=== PATIENT | female | born 1995 | race Asian ===

== ENCOUNTER 2022-12-28 08:45 | Day surgery (SDC) | payer OTHER ==
[2022-12-26 16:10] VITALS: BMI 22.8
[2022-12-28] MEDS ORDERED: Fentanyl 250 MCG/5 ML VIAL ONE (09:32)
[2022-12-28] MEDS ORDERED: Lidocaine 1% PF 5 ML VIAL ONE (10:10)
[2022-12-28] MEDS ORDERED: Ondansetron PF 4 MG/2 ML Vial ONE (10:10)
[2022-12-28] MEDS ORDERED: PROPOFOL 200 MG/20 ML VIAL ONE (10:10)
[2022-12-28 10:48] LABS: BHCG - Serum Negative (NEGATIVE); Pregs Control Background? CLEAR/WHITE (CLR/WHITE); Pregs Control Bar Appear? YES (CONTROL BAR)
[2022-12-28] MEDS ORDERED: fentaNYL 50 mcg/mL 1 mL Vial ONE ×3 (10:58→12:13)
[2022-12-28] MEDS ORDERED: HYDROcodone/Acetaminophen 5/325 mg Tablet ONE ×2 (12:58→14:26)
== END 2022-12-28 14:45 | disposition home or self-care (01) ==
LOC: SDC 08:45
PROVIDERS: ATTEND Otolaryngology Plastic Surgery within the Head & Neck
PROC: 0CBQ0ZZ Excision of Adenoids, Open Approach (ICD-10-PCS; principal; 2022-12-28)
PROC: 0CBPXZZ Excision of Tonsils, External Approach (ICD-10-PCS; principal; 2022-12-28)
DX: J35.3 Hypertrophy of tonsils with hypertrophy of adenoids (principal); J35.01 Chronic tonsillitis; Z88.1 Allergy status to other antibiotic agents; Z88.2 Allergy status to sulfonamides; G47.33 Obstructive sleep apnea (adult) (pediatric)
CPT/HCPCS: 84703; 85014; 88304; J2405; J2704; J3010